=== PATIENT | female | born 1985 | race Caucasian/White ===

== ENCOUNTER 2018-01-27 10:04 | Emergency (ER) | payer MEDICAID, OTHER ==
[~2018-01-27] VITALS: Ht 165.1 cm; Wt 136.1 kg
--- OUTSIDE RECORDS SUMMARY | 2018-01-27 10:11 | XMS REPORT ---
Author RIN Martell [facility] eClinicalWorks Address Unknown Phone Unavailable Care Team Providers Care Net Developer Software Engineer C Name Role Phone RIN WHITTEN CP Unavailable Allergies, Adverse Reactions, Alerts Substance Reaction Event Type N.K.D.A. Info Not Available Non Drug Allergy Problems Problem Type Condition Code Onset Dates Condition Status Problem Unspecified viral infection, in conditions classified elsewhere and of unspecified site 079.99 Active Problem Cough 786.2 Active Problem Chest pain, unspecified 786.50 Active Problem Asthma, unspecified, unspecified status 493.90 Active Problem Dermatophytosis of nail 110.1 Active Problem Allergic rhinitis, unspecified allergic rhinitis type J30.9 Active Problem Acute bronchitis 466.0 Active Problem Intrinsic asthma, with (acute) exacerbation 493.12 Active Problem External hemorrhoids without mention of complication 455.3 Active Problem Morbid obesity 278.01 Active Assessment Allergic rhinitis, unspecified allergic rhinitis type J30.9 Active Problem Abdominal pain, unspecified site 789.00 Active Problem Cellulitis and abscess of unspecified site 682.9 Active Problem Obesity, unspecified 278.00 Active Problem Urinary tract infection, site not specified 599.0 Active Problem Other specified disease of hair and hair follicles 704.8 Active Problem Pruritus of genital organs 698.1 Active Problem Acute sinusitis, unspecified 461.9 Active Medications Medication Code System Code Instructions Start Date End Date Status Dosage Advair HFA [facility] [address]-99 115-21 mcg/actuation Oct 31, 2014 2 puffs by Inhalation route 2 times per day Albuterol Sulfate [facility] [address]-67 2.5 mg /3 mL (0.083 %) December 23, 2013 1 Each by Inhalation route every 4-6 hours for cough and wheeze for 7 days for wheezing or cough ProAir HFA [facility] [address]-95 90 mcg/actuation Oct 31, 2014 2 puffs by Inhalation route 4 times per day for 30 day(s) Claritin-D 24 Hour [facility] [address]-82 10-240 MG/24HR Orally Once a day Sep 09, 2015 1 tablet as needed Flonase [facility] [address]-07 50 MCG/DOSE Nasally Once a day Sep 09, 2015 1-2 spray in each nostril Xanax [facility] [address]-81 2 mg December 23, 2013 not defined Procedures Procedure Coding System Code Date Office Visit, Est Pt., Level 3 CPT-4 02557 Sep 09, 2015 Vital Signs Date/Time: Sep 09, 2015 Temperature 98.3 F Weight 310 lbs Height 65 in BMI 51.58 Index Blood Pressure Diastolic 80 mmHg Blood Pressure Systolic 118 mmHg Cardiac Monitoring Heart Rate 102 bpm Results No Known Results Summary Purpose eClinicalWorks Submission
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
--- OUTSIDE RECORDS SUMMARY | 2018-01-27 10:11 | XMS REPORT ---
Author Author HYUN OGLESBY [facility] Address Unknown Phone Unavailable Care Team Providers Care Roller Shop Utility Worker Name Role Phone HYUN OGLESBY Unavailable Unavailable PROBLEMS Type Condition ICD9-CM Code CPD39-MO Code Onset Dates Condition Status SNOMED Code Problem Allergic contact dermatitis, unspecified trigger L23.9 Active 731190578 Problem Scabies B86 Active 294688515 Problem Allergic rhinitis, unspecified allergic rhinitis type J30.9 Active 79130988 Problem Asthma exacerbation J45.901 Active 254496607 Problem Seasonal allergic rhinitis, unspecified allergic rhinitis trigger J30.2 Active 092685987 ALLERGIES No Information SOCIAL HISTORY Never Assessed PLAN OF CARE VITAL SIGNS MEDICATIONS No Known Medications RESULTS No Results PROCEDURES No Known procedures IMMUNIZATIONS No Known Immunizations MEDICAL (GENERAL) HISTORY [...]
--- OUTSIDE RECORDS SUMMARY | 2018-01-27 10:11 | XMS REPORT ---
Author Author EUGENIO BRUMFIELD [facility] Address [address] [place] [address] Care Team Providers Care Local Company Refrigerated Truck Driver Name Role Phone BRISSAEUGENIO Unavailable PROBLEMS Type Condition ICD9-CM Code ZZA75-IG Code Onset Dates Condition Status SNOMED Code Problem Allergic contact dermatitis, unspecified trigger L23.9 Active 346382642 Problem Scabies B86 Active 097508262 Problem Allergic rhinitis, unspecified allergic rhinitis type J30.9 Active 16987397 Problem Asthma exacerbation J45.901 Active 804580926 Problem Seasonal allergic rhinitis, unspecified allergic rhinitis trigger J30.2 Active 795112913 ALLERGIES No Information SOCIAL HISTORY Never Assessed [...]
--- OUTSIDE RECORDS SUMMARY | 2018-01-27 10:11 | XMS REPORT ---
Author JANY Bush [facility] eClinicalWorks Address Unknown Phone Unavailable Care Team Providers Care Marketing Intelligence Manager Name Role Phone JANY WATT CP Unavailable Allergies, Adverse Reactions, Alerts Substance [...] Active Problem Morbid obesity 278.01 Active Assessment Sinusitis J32.9 Active Problem Abdominal pain, unspecified site 789.00 Active Assessment Allergic rhinitis, unspecified allergic rhinitis type J30.9 Active Problem Cellulitis and abscess of unspecified site 682.9 Active Problem Obesity, unspecified 278.00 Active Problem Urinary tract infection, site not specified 599.0 Active Problem Other specified disease of hair and hair follicles 704.8 Active Problem Pruritus of genital organs 698.1 Active Problem Acute sinusitis, unspecified 461.9 Active Medications Medication Code System Code Instructions Start Date End Date Status Dosage Augmentin [facility] [address]-23 875-125 MG Orally every 12 hrs Nov 10, 2015 Nov 20, 2015 1 tablet Xanax [facility] [address]-99 2 mg December 23, 2013 not defined Ibuprofen [facility] [address]-39 600 MG Orally Three times a day prn headache Nov 10, 2015 Dec 10, 2015 1 tablet Flonase [facility] [address]-03 50 MCG/DOSE Nasally 2 times a day Sep 09, 2015 1 spray in each nostril Zyrtec Allergy [facility] [address]-59 10 MG Orally Once a day at HS Nov 10, 2015 1 tablet Procedures Procedure Coding System Code Date Office Visit, Est Pt., Level 3 CPT-4 15475 Nov 10, 2015 Vital Signs Date/Time: Nov 10, 2015 Temperature 97.3 F Weight 305.6 lbs Height 65 in BMI 50.85 Index Blood Pressure Diastolic 70 mmHg Blood Pressure Systolic 118 mmHg Cardiac Monitoring Heart Rate 98 bpm Results No Known Results Summary Purpose eClinicalWorks Submission
--- OUTSIDE RECORDS SUMMARY | 2018-01-27 10:11 | XMS REPORT ---
Author Author RAFAEL REID [facility] Address Unknown Care Team Providers Care Tonnage Compilation Clerk Name Role Phone RAFAEL REID Unavailable PROBLEMS Type Condition ICD9-CM Code DBO10-SO Code Onset Dates Condition Status SNOMED Code Problem Asthma exacerbation J45.901 Active 244500995 Problem Allergic rhinitis, unspecified allergic rhinitis type J30.9 Active 84908028 Problem Morbid (severe) obesity due to excess calories E66.01 Active 872689626 Problem Tobacco abuse Z72.0 Active 707848806 Problem Scabies B86 Active 287679293 Problem Seasonal allergic rhinitis, unspecified allergic rhinitis trigger J30.2 Active 215486232 Problem Body mass index (BMI) of 50-59.9 in adult Z68.43 Active 480521142 Problem Allergic contact dermatitis, unspecified trigger L23.9 Active 211928768 ALLERGIES Substance Reaction Event Type Date Status Tramadol HCl Unknown Drug Allergy Mar, Active ENCOUNTERS Encounter Location Date Diagnosis [facility] [address] [id number] [id number] Nov, 2018 Shortness of breath R06.02 ; Swelling, mass, or lump in chest R22.2 ; Asthma exacerbation J45.901 ; Tobacco abuse Z72.0 ; Body mass index (BMI) of 50- 59.9 in adult Z68.43 and Morbid (severe) obesity due to excess calories E66.01 [facility] [address] [id number] [place] [id number] Jul, [facility] [address] [facility] [id number] [id number] Mar, Dental caries K02.9 [facility] [address] [id number][place] [id number] Mar, Dental examination Z01.20 [facility] [address] [id number] [id number] February, [facility] examination Z01.20 [facility] [address] [id number][place] [id number] Jan, [facility] [address] [facility] [id number] [address] Dec, Right foot pain M79.671 and Right foot sprain, initial encounter S93.601A [facility] [id number] [id number] Nov, [facility] [address] [id number][place] [id number] Nov, [facility] [id number][place] [id number] Nov, [facility] [id number][place] [id number] Nov, [facility] [address] [id number][place] [id number] Nov, Asthma exacerbation J45.901 [facility] [address] [id number][place] [id number] Nov, [facility] [address] [id number], [place] [id number] Nov, Asthma exacerbation J45.901 and Allergic contact dermatitis, unspecified trigger L23.9 [facility] [address] [facility] [id number], [place] [address] Aug, Dental examination Z01.20 [facility] [address] [facility] [id number][place] [address] Aug, Dental examination Z01.20 [facility] [address] [id number][place] [id number] 06 Jul, 2016 Scabies B86 [facility] [address] [id number], [place] [id number] 14 Jun, 2016 [facility] [address] [facility] [id number], [place] [address] Jun, [address] [id number][place] [id number] Jun, Asthma exacerbation J45.901 and Seasonal allergic rhinitis, unspecified allergic rhinitis trigger J30.[address] [id number], [place] [id number] Dec, [address] [id number][place] [id number] Dec, Strep pharyngitis J02.[id number] [place] [id number] Nov, Encntr for basket machine operator exam (general) (routine) w/o abn findings Z01.[address] [id number], [place] [id number] Oct, Sinusitis J32.9 and Allergic rhinitis, unspecified allergic rhinitis type J30.[address] [id number], [place] [id number] Aug, Allergic rhinitis, unspecified allergic rhinitis type J30.[address] [id number], [place] [id number] Mar, Avulsion fracture of navicular bone of left foot 825.22 and Fall from other slipping, tripping, or stumbling E885.9 [facility] [address] [id number], [place] [address] Jan, [facility] [id number] [place] [address] Jan, [facility] [address] [place] [address] Dec, [facility] [address]00565100[place], [place] [address] Dec, [facility] [place] [facility] [address] [id number] [place] [address] Dec, 2014 [facility] [place] [facility] [address] [id number] [place] [address] Dec, 2014 [facility] [place] [facility] [address] [id number] [place] [address] Dec, 2014 [facility] [place] [facility] [address] [id number] [place] [address] Dec, 2014 [facility] [place] [facility] [address] [id number] [place] [address] Nov, 2014 [facility] [place] [facility] [address] [id number] [place] [address] Nov, 2014 [facility] [place] [facility] [address] [facility] [id number] [place] [address] Nov, 2014 [facility] [place] [facility] [address] [facility] [id number] [place] [address] Nov, 2014 [facility] [place] [facility] [address] [facility] [id number] [place] [address] Nov, [facility] [place] [facility] [address] [facility] [id number] [place] [address] Nov, [facility] [place] [facility] [address] [facility] [id number] [place] [address] Oct, [facility] [place] [facility] [address] [facility] [id number], [place] [address] Oct, [facility] [place] [facility] [address] [facility] [id number] [place] [address] Jul, [facility] [place] [facility] [address] [id number] [place] [address] Jul, [facility] [place] [facility] [address] [facility] [id number], [place] [address] Jun, [facility] [place] [facility] [address] [facility] [id number], [place] [address] Jun, [facility] [address]00565100[place], [place] [address] May, [facility] [address]00565100[place] [address] Apr, [facility] [address] [id number], [place] [address] Apr, [facility] [address] [facility] [id number], [place] [address] Mar, [facility] [address] [facility] [id number], [place] [address] Mar, [facility] [address]65100[place], [place] [address] Mar, [facility] [address]65100[place], [place] [address] Mar, [facility] [address]65100[place], [place] [address] Mar, [facility] [address]65100[place], [place] [address] Mar, [facility] [address]65100[place], [place] [address] February, [facility] [address] [id number], [place] [address] February, [facility] [address] [id number], [place] [address] Dec, [facility] [address] [id number], [place] [address] Dec, IMMUNIZATIONS No Known Immunizations SOCIAL HISTORY Never Assessed REASON FOR VISIT margaux PLAN OF CARE Activity Details Follow Up 1 Week Reason:TE VITAL SIGNS Height 65 in 2017-03-28 Blood pressure systolic 119 mmHg 2017-03-28 Blood pressure diastolic 84 mmHg 2017-03-28 MEDICATIONS Medication Instructions Dosage Frequency Start Date End Date Duration Status Crutches-Aluminum - as directed Dec, Active Topamax 200 MG Orally Twice a day 1 tablet 12h Active Ventolin HFA 108 (90 Base) MCG/ACT Inhalation every 4 hrs 2 puffs as needed 4h Nov, 07 days Active Ambien 5 MG Orally Once a day 1 tablet at bedtime 24h Active [place] 5-325 MG Orally every 6 hrs 1 tablet as needed 6h 4 days Active Albuterol Sulfate 2.5 mg /3 mL (0.083 %) Inhalation 4 times a day as needed 3 mls-do not use both inhaler and albuterol more than 6 times Max Dec, 07 days Active Prestige LX Active Advair Diskus 250-50 MCG/DOSE Inhalation Twice a day, rinse mouth after use 1 puff Jun, 0 days Active Amoxicillin 500 MG Orally every 8 hrs 1 tablet 8h 7 days Active Xanax 2 mg Dec, Active Amoxicillin 500 MG Orally every 8 hrs 1 capsule 8h 7 days Active [place] 5-325 MG Orally every 6 hrs 1 tablet as needed 6h 4 days Active RESULTS No Results PROCEDURES Procedure Date Ordered Result Body Site LTD ORAL EVALUATION - PROBLEM FOCUS March 28, 2017 INSTRUCTIONS MEDICATIONS ADMINISTERED No Known Medications MEDICAL (GENERAL) HISTORY Type Description Date Medical [...]
--- OUTSIDE RECORDS SUMMARY | 2018-01-27 10:11 | XMS REPORT ---
Author Author EUGENIO BRUMFIELD [facility] Address [address] [place] [address] Care Team Providers Care Automobile Technician Name Role Phone BRISSAEUGENIO Unavailable PROBLEMS Type Condition ICD9-CM Code ZPN35-GS Code Onset Dates Condition Status SNOMED Code Problem Allergic contact dermatitis, unspecified trigger L23.9 Active 890372889 Problem Scabies B86 Active 266833884 Problem Allergic rhinitis, unspecified allergic rhinitis type J30.9 Active 61895751 Problem Asthma exacerbation J45.901 Active 117065183 Problem Seasonal allergic rhinitis, unspecified allergic rhinitis trigger J30.2 Active 417805684 ALLERGIES No Information SOCIAL HISTORY Never Assessed [...]
--- OUTSIDE RECORDS SUMMARY | 2018-01-27 10:11 | XMS REPORT ---
Author Author [facility]ES [facility] Address [address] [place] [address] Care Team Providers Care Extruder Operator Name Role Phone OMAR NEVES Unavailable PROBLEMS Type Condition ICD9-CM Code DPE05-VS Code Onset Dates Condition Status SNOMED Code Problem Allergic contact dermatitis, unspecified trigger L23.9 Active 840995869 Problem Scabies B86 Active 694784318 Problem Allergic rhinitis, unspecified allergic rhinitis type J30.9 Active 43580988 Problem Asthma exacerbation J45.901 Active 833549905 Problem Seasonal allergic rhinitis, unspecified allergic rhinitis trigger J30.2 Active 813818529 ALLERGIES Substance Reaction Event Type Date Status Tramadol HCl Unknown Drug Allergy Dec, Active SOCIAL HISTORY Never Assessed PLAN OF CARE Activity Details Follow Up prn Reason: VITAL SIGNS Height 65 in 2016-12-20 Weight 320.8 lbs 2016-12-20 Temperature 98.0 degrees Fahrenheit 2016-12-20 Heart Rate 92 bpm 2016-12-20 Respiratory Rate 22 2016-12-20 BMI 53.38 kg/m2 2016-12-20 Blood pressure systolic 126 mmHg 2016-12-20 Blood pressure diastolic 92 mmHg 2016-12-20 MEDICATIONS Medication Instructions Dosage Frequency Start Date End Date Duration Status Albuterol Sulfate 2.5 mg /3 mL (0.083 %) Inhalation 4 times a day as needed 3 mls-do not use both inhaler and albuterol more than 6 times Max Dec, 07 days Active Xanax 2 mg Dec, Active Crutches-Aluminum - as directed Dec, Active Ventolin HFA 108 (90 Base) MCG/ACT Inhalation every 4 hrs 2 puffs as needed 4h Nov, 07 days Active Prestige LX Active Ambien 5 MG Orally Once a day 1 tablet at bedtime 24h Active Topamax 200 MG Orally Twice a day 1 tablet 12h Active Advair Diskus 250-50 MCG/DOSE Inhalation Twice a day, rinse mouth after use 1 puff 13 Jun, 2016 0 days Active RESULTS Name Result Date Reference Range Xray : Foot, Right 3 views (IN HOUSE) 2016-12-20 PROCEDURES Procedure Date Ordered Result Body Site X-RAY EXAM OF FOOT December 20, 2016 IMMUNIZATIONS No Known Immunizations MEDICAL (GENERAL) [...]
--- OUTSIDE RECORDS SUMMARY | 2018-01-27 10:11 | XMS REPORT ---
Author Author JACLYN Maldonado Organization [facility] Address Unknown Care Team Providers Care Social Work Coordinator Name Role Phone JACLYN Maldonado Unavailable PROBLEMS Type Condition ICD9-CM Code KIV46-AJ Code Onset Dates Condition Status SNOMED Code Problem Allergic contact dermatitis, unspecified trigger L23.9 Active 587417563 Problem Scabies B86 Active 841949253 Problem Allergic rhinitis, unspecified allergic rhinitis type J30.9 Active 50522546 Problem Asthma exacerbation J45.901 Active 405770080 Problem Seasonal allergic rhinitis, unspecified allergic rhinitis trigger J30.2 Active 806817982 ALLERGIES Substance Reaction Event Type Date Status N.K.D.A. Unknown Non Drug Allergy Aug, Unknown SOCIAL HISTORY No smoking Hx information available PLAN OF CARE Activity Details Follow Up prn Reason:fillings VITAL SIGNS Height 65 in 2016-08-27 Blood pressure systolic 105 mmHg 2016-08-27 Blood pressure diastolic 70 mmHg 2016-08-27 MEDICATIONS Medication Instructions Dosage Frequency Start Date End Date Duration Status Topamax 200 MG Orally Twice a day 1 tablet 12h Active ProAir HFA 90 mcg/actuation Inhalation 4 times a day then as needed 2 puffs Oct, 07 days Active Albuterol Sulfate 2.5 mg /3 mL (0.083 %) Inhalation 4 times a day as needed 3 mls-do not use both inhaler and albuterol more than 6 times Max Dec, 07 days Active Ambien 5 MG Orally Once a day 1 tablet at bedtime 24h Active Advair Diskus 100-50 MCG/DOSE Inhalation Twice a day, rinse mouth after use 1 puff Jun, Active Prestige LX Active Xanax 2 mg Dec, Active Ibuprofen 800 MG Orally Three times a day 1 tablet as needed with food 8h Jun, Active RESULTS No Results PROCEDURES Procedure Date Ordered Related Diagnosis Body Site LTD ORAL EVALUATION - PROBLEM FOCUS Aug 27, 2016 COMP ORAL EVALUATION - NEW/EST PT Aug 27, 2016 INTRAORL-PERIAPICAL 1 FILM 53086 Aug 27, 2016 RESIN COMPOS - 3 SURFACES POSTERIOR Aug 27, 2016 PANORAMIC FILM SEE ALSO CODE 06751 Aug 27, 2016 IMMUNIZATIONS No Known Immunizations
--- OUTSIDE RECORDS SUMMARY | 2018-01-27 10:12 | XMS REPORT ---
Author Author ANSELMOEUGENIO DISLA [facility] Address [address] [place] [address] Care Team Providers Care Enrichment Teacher Name Role Phone EUGENIO BRUMFIELD Unavailable PROBLEMS Type Condition ICD9-CM Code ZIF18-KO Code Onset Dates Condition Status SNOMED Code Problem Asthma exacerbation J45.901 Active 079465003 Problem Seasonal allergic rhinitis, unspecified allergic rhinitis trigger J30.2 Active 197887078 Problem Allergic rhinitis, unspecified allergic rhinitis type J30.9 Active 20355999 Assessment Asthma exacerbation J45.901 Jun, Active 124217885 ALLERGIES Substance Reaction Event Type Date Status N.K.D.A. Unknown Non Drug Allergy Jun, Unknown SOCIAL HISTORY No smoking Hx information available PLAN OF CARE VITAL SIGNS Height 65 in 2016-07-02 Weight 316 lbs 2016-07-02 Heart Rate 98 bpm 2016-07-02 Respiratory Rate 20 2016-07-02 Oximetry 96 % 2016-07-02 BMI 52.58 kg/m2 2016-07-02 Blood pressure systolic 118 mmHg 2016-07-02 Blood pressure diastolic 76 mmHg 2016-07-02 MEDICATIONS Medication Instructions Dosage Frequency Start Date End Date Duration Status Albuterol Sulfate 2.5 mg /3 mL (0.083 %) Inhalation 4 times a day as needed 3 mls-do not use both inhaler and albuterol more than 6 times Max Dec, 07 days Active Topamax 200 MG Orally Twice a day 1 tablet 12h Active Xanax 2 mg Dec, Active PredniSONE 20 mg Orally Once a day 2 tablet 24h Jun, Jun, 05 days Active Zyrtec Allergy 10 mg Orally Once a day at HS 1 tablet Oct, Active Advair HFA 115-21 mcg/actuation Inhalation Twice a day 2 puffs-rinse mouth after use 12h Oct, Active Prestige LX Active Ibuprofen 800 MG Orally Three times a day 1 tablet as needed with food 8h Jun, Active Ambien 5 MG Orally Once a day 1 tablet at bedtime 24h Active ProAir HFA 90 mcg/actuation Inhalation 4 times a day then as needed 2 puffs Oct, 07 days Active RESULTS No Results PROCEDURES Procedure Date Ordered Related Diagnosis Body Site MEASURE BLOOD OXYGEN LEVEL Jul 02, 2016 Office Visit, Est Pt., Level 3 Jul 02, 2016 IMMUNIZATIONS No Known Immunizations
--- OUTSIDE RECORDS SUMMARY | 2018-01-27 10:12 | XMS REPORT ---
Author Author EUGENIO BRUMFIELD [facility] Address [address] [place] [address] Care Team Providers Care Radiotelegraph Operator Name Role Phone EUGENIO BRUMFIELD Unavailable PROBLEMS Type Condition ICD9-CM Code [id number] Code Onset Dates Condition Status SNOMED Code Problem Allergic contact dermatitis, unspecified trigger L23.9 Active 662540955 Problem Scabies B86 Active 373731878 Problem Allergic rhinitis, unspecified allergic rhinitis type J30.9 Active 38165447 Problem Asthma exacerbation J45.901 Active 566855256 Problem Seasonal allergic rhinitis, unspecified allergic rhinitis trigger J30.2 Active 160513901 ALLERGIES No Information SOCIAL HISTORY Never Assessed PLAN OF CARE VITAL SIGNS MEDICATIONS Medication Instructions Dosage Frequency Start Date End Date Duration Status Magic Mouthwash 30 ML each of 2% Viscous Lidocaine/Maalox/Benadryl Oral Swish and Spit 4 times daily 5 ML Nov, 7 days Active RESULTS No Results PROCEDURES No Known procedures [...]
--- OUTSIDE RECORDS SUMMARY | 2018-01-27 10:12 | XMS REPORT ---
Author Author EUGENIO BRUMFIELD [facility] Address [address] [place] [address] Care Team Providers Care Superintendent Stevedoring Name Role Phone EUGENIO BRUMFIELD Unavailable PROBLEMS Type Condition ICD9-CM Code EHI04-NU Code Onset Dates Condition Status SNOMED Code Problem Allergic contact dermatitis, unspecified trigger L23.9 Active 148589650 Problem Scabies B86 Active 130702549 Problem Allergic rhinitis, unspecified allergic rhinitis type J30.9 Active 51784864 Problem Asthma exacerbation J45.901 Active 591283620 Problem Seasonal allergic rhinitis, unspecified allergic rhinitis trigger J30.2 Active 034865790 ALLERGIES No Information SOCIAL HISTORY Never Assessed PLAN OF CARE VITAL SIGNS MEDICATIONS Medication Instructions Dosage Frequency Start Date End Date Duration Status Tylenol/Codeine #3 300-30 MG Orally 3 times a day as needed for pain 1 tablet Nov, Active RESULTS No Results PROCEDURES No Known [...]
--- OUTSIDE RECORDS SUMMARY | 2018-01-27 10:12 | XMS REPORT ---
Author Author BRISSA EUGENIO [facility] Address [address] [place] [address] Care Team Providers Care Mechanical Service Specialist Name Role Phone EUGENIO BRUMFIELD Unavailable PROBLEMS Type Condition ICD9-CM Code XUN54-IO Code Onset Dates Condition Status SNOMED Code Problem Allergic contact dermatitis, unspecified trigger L23.9 Active 804824458 Problem Scabies B86 Active 693998322 Problem Allergic rhinitis, unspecified allergic rhinitis type J30.9 Active 37868763 Problem Asthma exacerbation J45.901 Active 846432514 Problem Seasonal allergic rhinitis, unspecified allergic rhinitis trigger J30.2 Active 075288449 ALLERGIES No Known Allergies SOCIAL HISTORY Never Assessed PLAN OF CARE Activity Details Follow Up 3 Weeks Reason:punch biopsy VITAL SIGNS Height 65 in 2016-11-26 Weight 309 lbs 2016-11-26 Temperature 99.0 degrees Fahrenheit 2016-11-26 Heart Rate 90 bpm 2016-11-26 Respiratory Rate 16 2016-11-26 Oximetry 96 % 2016-11-26 BMI 51.41 kg/m2 2016-11-26 Blood pressure systolic 110 mmHg 2016-11-26 Blood pressure diastolic 76 mmHg 2016-11-26 MEDICATIONS Medication Instructions Dosage Frequency Start Date End Date Duration Status Topamax 200 MG Orally Twice a day 1 tablet 12h Active PredniSONE 20 mg Orally Once a day start 11/27/16-3 tabs dly x 3 d, 2 tabs dly x 3 d, 1 tabs dly x 3 d, 1/2 tab dly x 3 d 24h Nov, Nov, 12 days Active Ibuprofen 800 MG Orally Three times a day with food 1 tablet as needed with food Jun, Nov, 0 days Active Ventolin HFA 108 (90 Base) MCG/ACT Inhalation every 4 hrs 2 puffs as needed 4h Nov, 07 days Active Advair Diskus 250-50 MCG/DOSE Inhalation Twice a day, rinse mouth after use 1 puff 13 Jun, 2016 0 days Active HydrOXYzine HCl 25 MG Orally every 8 hrs for itching 1 tablet as needed Nov, 0 days Active Prestige LX Active Ambien 5 MG Orally Once a day 1 tablet at bedtime 24h Active Xanax 2 mg Dec, Active Albuterol Sulfate 2.5 mg /3 mL (0.083 %) Inhalation 4 times a day as needed 3 mls-do not use both inhaler and albuterol more than 6 times Max Dec, 07 days Active Amoxicillin 875 MG Orally every 12 hrs 1 tablet 12h Nov, Nov, 14 days Active RESULTS No Results PROCEDURES Procedure Date Ordered Result Body Site MEASURE BLOOD OXYGEN LEVEL Nov 26, 2016 IMMUNIZATIONS No Known Immunizations MEDICAL (GENERAL) [...]
--- OUTSIDE RECORDS SUMMARY | 2018-01-27 10:12 | XMS REPORT ---
Author Author RAFAEL REID [facility] Address Unknown Care Team Providers Care Pipelaying Fitter Name Role Phone RAFAEL REID Unavailable PROBLEMS Type Condition ICD9-CM Code OAP36-HJ Code Onset Dates Condition Status SNOMED Code Problem Asthma exacerbation J45.901 Active 776896055 Problem Allergic rhinitis, unspecified allergic rhinitis type J30.9 Active 84138743 Problem Morbid (severe) obesity due to excess calories E66.01 Active 903367359 Problem Tobacco abuse Z72.0 Active 082684565 Problem Scabies B86 Active 169095358 Problem Seasonal allergic rhinitis, unspecified allergic rhinitis trigger J30.2 Active 039845949 Problem Body mass index (BMI) of 50-59.9 in adult Z68.43 Active 949554234 Problem Allergic contact dermatitis, unspecified trigger L23.9 Active 057281549 ALLERGIES Substance Reaction Event Type Date Status Tramadol HCl Unknown Drug Allergy February, Active ENCOUNTERS Encounter Location Date Diagnosis [facility] [address] [id number] [id number] 15 Nov, 2017 Shortness of breath R06.02 ; Swelling, mass, or lump in chest R22.2 ; Asthma exacerbation J45.901 ; Tobacco abuse Z72.0 ; Body mass index (BMI) of 50- 59.9 in adult Z68.43 and Morbid (severe) obesity due to excess calories E66.01 [facility] [address] [id number] [place] [id number] Jul, [facility] [address] [facility] [id number][place] [id number] Mar, Dental caries K02.9 [facility] [address] [id number][place] [id number] Mar, Dental examination Z01.20 [facility] [address] [facility] [id number][place] [id number] February, [facility] Z01.20 [facility] [address] [id number][place] [id number] Jan, [facility] [address] [facility] [id number][place] [address] Dec, Right foot pain M79.671 and Right foot sprain, initial encounter S93.601A [facility] [address] [id number][place] [id number] Nov, [facility] [address] [id number], [place] [id number] Nov, [facility] [address] [id number], [place] [id number] Nov, [facility] [address] [id number], [place] [id number] Nov, [facility] [address] [id number][place] [id number] Nov, Asthma exacerbation J45.901 [facility] [address] [id number], [place] [id number] Nov, [facility] [address] [id number], [place] [id number] Nov, Asthma exacerbation J45.901 and Allergic contact dermatitis, unspecified trigger L23.9 [facility] [address] [facility] [id number], [place] [address] Aug, Dental examination Z01.20 [facility] [address] [facility] [id number], [place] [address] Aug, Dental examination Z01.20 [facility] [address] [id number], [place] [id number] 06 Jul, 2016 Scabies B86 [facility] [address] [id number], [place] [id number] 14 Jun, 2016 [facility] [address] [facility] [id number], [place] [address] Jun, [address] [id number], [place] [id number] Jun, Asthma exacerbation J45.901 and Seasonal allergic rhinitis, unspecified allergic rhinitis trigger J30.[address] [id number], [place] [id number] Dec, [address] [id number], [place] [id number] Dec, Strep pharyngitis J02.[id number] [place] [id number] Nov, Encntr for scrap hoist operator exam (general) (routine) w/o abn findings Z01.[address] [id number], [place] [id number] Oct, Sinusitis J32.9 and Allergic rhinitis, unspecified allergic rhinitis type J30.[address] [id number], [place] [id number] Aug, Allergic rhinitis, unspecified allergic rhinitis type J30.[address] [id number], [place] [id number] Mar, Avulsion fracture of navicular bone of left foot 825.22 and Fall from other slipping, tripping, or stumbling E885.9 [facility] [address] [id number], [place] [address] Jan, [facility] [id number] [place] [address] Jan, [facility] [id number] [place] [address] Dec, [facility] [address]00565100[place], [place] [address] Dec, [facility] [place] [facility] [address] [id number] [place] [address] Dec, 2014 [facility] [place] [facility] [address] [id number] [place] [address] Dec, 2014 [facility] [place] [facility] [address] [id number] [place] [address] Dec, 2014 [facility] [place] [facility] [address] [id number] [place] [address] Dec, 2014 [facility] [place] [facility] [address] [id number] [place] [address] Nov, 2014 [facility] [place] [facility] [address] [id number] [place] [address] Nov, 2014 [facility] [place] [facility] [address] [facility] [id number] [place] [address] Nov, 2014 [facility] [place] [facility] [address] [facility] [id number] [place] [address] Nov, 2014 [facility] [place] [facility] [address] [facility] [id number] [place] [address] Nov, [facility] [place] [facility] [address] [facility] [id number] [place] [address] Nov, [facility] [place] [facility] [address] [facility] [id number] [place] [address] Oct, [facility] [place] [facility] [address] [facility] [id number], [place] [address] Oct, [facility] [place] [facility] [address] [facility] [id number] [place] [address] Jul, [facility] [place] [facility] [address] [id number] [place] [address] Jul, [facility] [place] [facility] [address] [facility] [id number], [place] [address] Jun, [facility] [place] [facility] [address] [facility] [id number], [place] [address] Jun, [facility] [address]00565100[place], [place] [address] May, [facility] [address]00565100[place] [address] Apr, [facility] [address] [id number], [place] [address] Apr, [facility] [address] [facility] [id number], [place] [address] Mar, [facility] [address] [id number], [place] [address] Mar, [facility] [address]00565100[place], [place] [address] Mar, [facility] [address]00565100[place], [place] [address] Mar, [facility] [address]00565100[place], [place] [address] Mar, [facility] [address]65100[place], [place] [address] Mar, [facility] [address]00565100[place], [place] [address] February, [facility] [address] [id number], [place] [address] February, [facility] [address] [id number], [place] [address] Dec, [facility] [address] [id number], [place] [address] Dec, IMMUNIZATIONS No Known Immunizations SOCIAL HISTORY Never Assessed REASON FOR VISIT ROCIO PLAN OF CARE Activity Details Follow Up 1 Week Reason:TE 30 VITAL SIGNS Height 65 in 2017-03-05 Blood pressure systolic 125 mmHg 2017-03-05 Blood pressure diastolic 85 mmHg 2017-03-05 MEDICATIONS Medication Instructions Dosage Frequency Start Date End Date Duration Status Topamax 200 MG Orally Twice a day 1 tablet 12h Active Advair Diskus 250-50 MCG/DOSE Inhalation Twice a day, rinse mouth after use 1 puff Jun, 0 days Active Ambien 5 MG Orally Once a day 1 tablet at bedtime 24h Active [place] 5-325 MG Orally every 6 hrs 1 tablet as needed 6h 4 days Active Prestige LX Active Albuterol Sulfate 2.5 mg /3 mL (0.083 %) Inhalation 4 times a day as needed 3 mls-do not use both inhaler and albuterol more than 6 times Max Dec, 07 days Active Ventolin HFA 108 (90 Base) MCG/ACT Inhalation every 4 hrs 2 puffs as needed 4h Nov, 07 days Active Xanax 2 mg Dec, Active Crutches-Aluminum - as directed Dec, Active Amoxicillin 500 MG Orally every 8 hrs 1 tablet 8h 7 days Active RESULTS No Results PROCEDURES Procedure Date Ordered Result Body Site LTD ORAL EVALUATION - PROBLEM FOCUS March 05, 2017 INTRAORL-PERIAPICAL 1 FILM 03284 March 05, 2017 INSTRUCTIONS MEDICATIONS ADMINISTERED No Known Medications [...]
--- OUTSIDE RECORDS SUMMARY | 2018-01-27 10:12 | XMS REPORT | Continuity of Care Document ---
Author Author Pending Sale To [facility] Address Unknown Phone Unavailable Allergies There is no data. Medications There is no data. Problems Date Dx Coded Attending Type Code Diagnosis Diagnosed By 12/23/2013 EUGENIO BRUMFIELD APRN 466.0 BRONCHITIS, ACUTE 12/23/2013 EUGENIO BRUMFIELD APRN 466.0 BRONCHITIS, ACUTE 12/23/2013 HENNING DO, ROGER K 466.0 BRONCHITIS, ACUTE 12/23/2013 HENNING DO, ROGER K 466.0 BRONCHITIS, ACUTE 12/23/2013 HENNING DO, ROGER K 466.0 BRONCHITIS, ACUTE 12/23/2013 HENNING DO, ROGER K 466.0 BRONCHITIS, ACUTE 12/23/2013 HENNING DO, ROGER K 466.0 BRONCHITIS, ACUTE 03/09/2014 EUGENIO BRUMFIELD APRN L 278.00 OBESITY UNSPECIFIED 03/09/2014 EUGENIO BRUMFIELD APRN L 682.9 CELLULITIS AND ABSCESS OF UNSPECIFIED SITES 03/09/2014 EUGENIO BRUMFIELD APRN L 704.8 OTHER SPECIFIED DISEASES OF HAIR AND HAIR FOLLICLES 03/09/2014 HENNING DO, ROGER K 278.00 OBESITY UNSPECIFIED 03/09/2014 HENNIGN DO, ROGER K 682.9 CELLULITIS AND ABSCESS OF UNSPECIFIED SITES 03/09/2014 HENNING DO, ROGER K 704.8 OTHER SPECIFIED DISEASES OF HAIR AND HAIR FOLLICLES 03/09/2014 HENNING DO, ROGER K 278.00 OBESITY UNSPECIFIED 03/09/2014 HENNING DO, ROGER K 682.9 CELLULITIS AND ABSCESS OF UNSPECIFIED SITES 03/09/2014 HENNING DO, ROGER K 704.8 OTHER SPECIFIED DISEASES OF HAIR AND HAIR FOLLICLES 03/09/2014 HENNING DO, ROGER K 278.00 OBESITY UNSPECIFIED 03/09/2014 HENNING DO, ROGER K 682.9 CELLULITIS AND ABSCESS OF UNSPECIFIED SITES 03/09/2014 HENNING DO, ROGER K 704.8 OTHER SPECIFIED DISEASES OF HAIR AND HAIR FOLLICLES 03/09/2014 HENNING DO, ROGER K 278.00 OBESITY UNSPECIFIED 03/09/2014 HENNING DO, ROGER K 682.9 CELLULITIS AND ABSCESS OF UNSPECIFIED SITES 03/09/2014 HENNING DO, ROGER K 704.8 OTHER SPECIFIED DISEASES OF HAIR AND HAIR FOLLICLES 03/09/2014 HENNING DO, ROGER K 278.00 OBESITY UNSPECIFIED 03/09/2014 HENNING DO, ROGER K 682.9 CELLULITIS AND ABSCESS OF UNSPECIFIED SITES 03/09/2014 HENNING DO, ROGER K 704.8 OTHER SPECIFIED DISEASES OF HAIR AND HAIR FOLLICLES 05/18/2014 HENNING DO, ROGER K 599.0 URINARY TRACT INFECTION SITE NOT SPECIFIED 05/18/2014 HENNING DO, ROGER K 698.1 PRURITUS OF GENITAL ORGANS 05/18/2014 HENNING DO, ROGER K 789.00 ABDOMINAL PAIN UNSPECIFIED SITE 05/18/2014 HENNING DO, ROGER K 599.0 URINARY TRACT INFECTION SITE NOT SPECIFIED 05/18/2014 HENNING DO, ROGER K 698.1 PRURITUS OF GENITAL ORGANS 05/18/2014 HENNING DO, ROGER K 789.00 ABDOMINAL PAIN UNSPECIFIED SITE 05/18/2014 HENNING DO, ROGER K 599.0 URINARY TRACT INFECTION SITE NOT SPECIFIED 05/18/2014 HENNING DO, ROGER K 698.1 PRURITUS OF GENITAL ORGANS 05/18/2014 HENNING DO, ROGER K 789.00 ABDOMINAL PAIN UNSPECIFIED SITE 05/18/2014 HENNING DO, ROGER K 599.0 URINARY TRACT INFECTION SITE NOT SPECIFIED 05/18/2014 HENNING DO, ROGER K 698.1 PRURITUS OF GENITAL ORGANS 05/18/2014 HENNING DO, ROGER K 789.00 ABDOMINAL PAIN UNSPECIFIED SITE 05/18/2014 HENNING DO, ROGER K 599.0 URINARY TRACT INFECTION SITE NOT SPECIFIED 05/18/2014 HENNING DO, ROGER K 698.1 PRURITUS OF GENITAL ORGANS 05/18/2014 HENNING DO, ROGER K 789.00 ABDOMINAL PAIN UNSPECIFIED SITE 07/09/2014 HENNING DO, ROGER K 461.9 SINUSITIS ACUTE 07/09/2014 HENNING DO, ROGER K 461.9 SINUSITIS ACUTE 07/09/2014 HENNING DO, ROGER K 461.9 SINUSITIS ACUTE 07/09/2014 HENNING DO, ROGER K 461.9 SINUSITIS ACUTE 10/31/2014 HENNING ROGER ENAMORADO K 493.12 INTRINSIC ASTHMA WITH (ACUTE) EXACERBATION 10/31/2014 HENNING YARIEL ENAMORADOA K 786.2 COUGH 10/31/2014 HENNING YARIEL ENAMORADOA K 493.12 INTRINSIC ASTHMA WITH (ACUTE) EXACERBATION 10/31/2014 HENNING YARIEL ENAMORADOA K 786.2 COUGH 10/31/2014 HENNING YARIEL ENAMORADOA K 493.12 INTRINSIC ASTHMA WITH (ACUTE) EXACERBATION 10/31/2014 HENNING ROGER ENAMORADO K 786.2 COUGH 11/22/2014 YARIEL HENNING DOA K 110.1 ONYCHOMYCOSIS 11/22/2014 YARIEL HENNING DOA K 278.01 OBESITY, MORBID (BMI >40) 11/22/2014 HENNING YARIEL ENAMORADOA K 455.3 EXTERNAL HEMORRHOIDS WITHOUT COMPLICATION 11/22/2014 YARIEL HENNING DOA K 493.90 ASTHMA UNSPECIFIED 11/22/2014 YARIEL HENNING DOA K 110.1 ONYCHOMYCOSIS 11/22/2014 YARIEL HENNING DOA K 278.01 OBESITY, MORBID (BMI >40) 11/22/2014 ROGER HENNING DO K 455.3 EXTERNAL HEMORRHOIDS WITHOUT COMPLICATION 11/22/2014 ROGER HENNING DO K 493.90 ASTHMA UNSPECIFIED 01/04/2015 YARIEL HENNING DOA K 079.99 UNSPECIFIED VIRAL INFECTION 01/04/2015 ROGER HENNING DO K 786.50 UNSPECIFIED CHEST PAIN Procedures Code Description [place] [address] NEBULIZER TREATMENT 12/23/2013 J7613 ALBUTEROL UNIT DOSE FORM INHALED 12/23/2013 67263 THERAPUTIC INJ SQ/IM 12/23/2013 J2930 SOLUMEDROL INJ 12/23/2013 62993 XRAY CHEST 2 VIEW 12/23/2013 47551 OXIMETRY 12/23/2013 23133 ROUTINE VENIPUNCTURE 03/30/2014 19448 CMP 03/30/2014 84214 LIPID PANEL 03/30/2014 69541 A1C (RML) 03/30/2014 53889 TSH 03/30/2014 24606 CULTURE URINE 05/18/2014 60341 UA LONG DIP 05/18/2014 19557 THERAPUTIC INJ SQ/IM 10/31/2014 J2930 SOLUMEDROL INJ 10/31/2014 Results There is no data. Encounters ACCT No. Visit Date/Time Discharge Status Pt. Type Provider Facility Loc./Unit Complaint [id number] 01/04/2015 10:26:00 01/04/2015 23:59:59 CLS Outpatient JUVENCIO ENAMORADOROGER [id number] 11/22/2014 09:46:00 11/22/2014 23:59:59 CLS Outpatient HENNING DOROGER [id number] 10/31/2014 14:31:00 10/31/2014 23:59:59 CLS Outpatient ROGER HENNING DO [id number] 07/09/2014 10:18:00 07/09/2014 23:59:59 CLS Outpatient HENNING DOROGER [id number] 05/18/2014 13:39:00 05/18/2014 23:59:59 CLS Outpatient ROGER HENNING DO [id number] 03/30/2014 07:26:00 03/30/2014 23:59:59 CLS Outpatient EUGENIO BRUMFIELD APRN [id number] 12/23/2013 11:45:00 12/23/2013 23:59:59 CLS Outpatient EUGENIO BRUMFIELD APRN
--- OUTSIDE RECORDS SUMMARY | 2018-01-27 10:12 | XMS REPORT ---
Author EUGENIO Brady [facility] e[employer] Address Unknown Phone Unavailable Care Team Providers Care Director Of Agronomy Name Role Phone EUGENIO BRUMFIELD CP Unavailable Allergies, Adverse Reactions, Alerts Substance Reaction Event Type N.K.D.A. Info Not Available Non Drug Allergy Problems Problem Type Condition Code Onset Dates Condition Status Problem Asthma exacerbation J45.901 Active Problem Seasonal allergic rhinitis, unspecified allergic rhinitis trigger J30.2 Active Problem Scabies B86 Active Problem Allergic rhinitis, unspecified allergic rhinitis type J30.9 Active Assessment Scabies B86 Active Medications Medication Code System Code Instructions Start Date End Date Status Dosage Permethrin [facility] [address]-98 5 % Externally Once a day Jul 25, 2016 1 application as directed to affected area Triamcinolone Acetonide [facility] [address]-22 0.1 % Externally Twice a day Jul 25, 2016 1 application to affected area Ambien [facility] [address]-35 5 MG Orally Once a day 1 tablet at bedtime Albuterol Sulfate [facility] [address]-41 2.5 mg /3 mL (0.083 %) Inhalation 4 times a day as needed December 23, 2013 3 mls-do not use both inhaler and albuterol more than 6 times Max Flonase [facility] [address]-55 50 MCG/DOSE Nasally 2 times a day Sep 09, 2015 1 spray in each nostril Xanax [facility] [address]-27 2 mg December 23, 2013 not defined Zyrtec Allergy [facility] [address]-32 10 mg Orally Once a day at Nov 10, 2015 1 tablet Ibuprofen [facility] [address]-07 800 MG Orally Three times a day Jul 02, 2016 1 tablet as needed with food ProAir HFA [facility] [address]-14 90 mcg/actuation Inhalation 4 times a day then as needed Oct 31, 2014 2 puffs Advair Diskus [facility] [address]-78 100-50 MCG/DOSE Inhalation Twice a day, rinse mouth after use Jul 02, 2016 1 puff Prestige LX NDC 0 not defined Procedures Procedure Coding System Code Date Office Visit, Est Pt., Level 3 CPT-4 78091 Jul 25, 2016 Vital Signs Date/Time: Jul 25, 2016 Cardiac Monitoring Heart Rate 90 bpm Weight 316 lbs Height 65 in BMI 52.58 Index Blood Pressure Diastolic 74 mmHg Blood Pressure Systolic 118 mmHg Results No Known Results Summary Purpose [employer]ClinicalWorks Submission
--- OUTSIDE RECORDS SUMMARY | 2018-01-27 10:12 | XMS REPORT ---
Author ROLO Cook [facility] eClinicalWorks Address Unknown Phone Unavailable Care Team Providers Care Tutor Coordinator Name Role Phone ROLO TABARES CP Unavailable Allergies, Adverse Reactions, Alerts Substance Reaction Event Type N.K.D.A. Info Not Available Non Drug Allergy Problems Problem Type Condition Code Onset Dates Condition Status Problem Asthma exacerbation J45.901 Active Problem Seasonal allergic rhinitis, unspecified allergic rhinitis trigger J30.2 Active Problem Scabies B86 Active Problem Allergic rhinitis, unspecified allergic rhinitis type J30.9 Active Assessment Dental examination Z01.20 Active Medications Medication Code System Code Instructions Start Date End Date Status Dosage Advair Diskus [facility] [address]-39 100-50 MCG/DOSE Inhalation Twice a day, rinse mouth after use Jul 02, 2016 1 puff ProAir HFA [facility] [address]-36 90 mcg/actuation Inhalation 4 times a day then as needed Oct 31, [address] [facility] [address]-71 2 mg December 23, 2013 not defined Ambien [facility] [address]-32 5 MG Orally Once a day 1 tablet at bedtime Ibuprofen [facility] [address]-94 800 MG Orally Three times a day Jul 02, 2016 1 tablet as needed with food Topamax [facility] [address]-28 200 MG Orally Twice a day 1 tablet Prestige LX [facility] 0 not defined Albuterol Sulfate [facility] [address]-21 2.5 mg /3 mL (0.083 %) Inhalation 4 times a day as needed December 23, 2013 3 mls-do not use both inhaler and albuterol more than 6 times Max Procedures Procedure Coding System Code Date INTRAORL-PERIAPICAL 1 FILM 83371 CPT-4 D0220 Aug 27, 2016 INTRAORL-PERIAPICAL 1 FILM 47870 CPT-4 D0220 Aug 27, 2016 COMP ORAL EVALUATION - NEW/EST PT CPT-4 D0150 Aug 27, 2016 TOPICAL FLUORIDE VARNISH CPT-4 D1206 Aug 27, 2016 BITEWINGS - FOUR FILMS CPT-4 D0274 Aug 27, 2016 INTRAORL-PERIAPICAL EA ADD FILM CPT-4 D0230 Aug 27, 2016 PRDONTAL SCAL and ROOT PLAN 1-3 TEETH CPT-4 D4342 Aug 27, 2016 PROPHYLAXIS - ADULT CPT-4 D1110 Aug 27, 2016 Vital Signs Date/Time: Aug 27, 2016 Blood Pressure Diastolic 70 mmHg Blood Pressure Systolic 105 mmHg Height 65 in Results No Known Results Summary Purpose eClinicalWorks Submission
[2018-01-27] MEDS ORDERED: IBUP-1780 (10:27)
[2018-01-27] MEDS ORDERED: SULF-222 (10:27)
[2018-01-27] MEDS ORDERED: AMBIE (10:27)
[2018-01-27] MEDS ORDERED: ZOLP10TA5 (10:30)
--- NOTE | 2018-01-27 10:54 | ED Integumentary General ---
General Chief Complaint: Skin/Wound Problems Stated Complaint: SKIN WOUND ISSUE ON CHEST Nursing Triage Note: TO ROOM FROM [facility] IN [place] HAS HAD RED AREA ON R CHEST WALL FOR 1 MONTH HAS HAD SONO OF AREA AND CXR WHEN 1ST UNSET UNSURE OF RESULTS. CON'T TO HAVE PAIN. AREA RED. Source: patient Exam Limitations: no limitations (DED I) History of Present Illness Date Seen by Provider: Jan 27, 2018 Time Seen by Provider: 10:49 Initial Comments To ER with c/o central chest redness. On bactrim and mupirocin since 01/24/19. States she saw Dr blanton this morning who advised her to come to ER as this might need drained. She specifically denies fevers or chills but states the pain is intolerable and redness is getting bigger. Timing/Duration: just prior to arrival, getting worse Allergies and Home Medications Allergies Coded Allergies: No Known Drug Allergies (Unverified , 01/27/18) Home Medications Hydrocodone/Acetaminophen 1 Each Tablet, 1 EACH PO Q4H PRN for PAIN-MILD TO MODERATE Prescribed by: BYRON MATA on 01/27/18 1126 Patient Home Medication List Home Medication List Reviewed: Yes Constitutional: see HPI EENTM: see HPI Respiratory: no symptoms reported Cardiovascular: no symptoms reported Genitourinary: no symptoms reported Musculoskeletal: no symptoms reported Skin: see HPI Psychiatric/Neurological: No Symptoms Reported Endocrine: No Symptoms Reported Past Kjnhmza-Bxtbrc-Ghugli Hx Patient Social History Alcohol Use: Denies Use Recreational Drug Use: No Smoking Status: Current Everyday Smoker 2nd Hand Smoke Exposure: Yes Recent Foreign Travel: No Contact w/Someone Who Travel: No Recent Infectious Disease Expo: No Past Medical History Surgeries: Yes Section, Gallbladder, Orthopedic Respiratory: No Cardiac: No Neurological: No Genitourinary: No Gastrointestinal: No Musculoskeletal: No Endocrine: No HEENT: No Cancer: No Psychosocial: Yes Anxiety Physical Exam Vital Signs Vital Signs - First Documented 01/27/18 10:13 Temp 99.0 Pulse 81 Resp 18 B/P (MAP) 131/67 (88) Pulse Ox 98 Capillary Refill : Less Than 3 Seconds General Appearance: WD/WN, no apparent distress, obese HEENT: PERRL/EOMI, normal ENT inspection Neck: non-tender, full range of motion Respiratory: no respiratory distress, no accessory muscle use Gastrointestinal: non tender, soft Extremities: normal range of motion, non-tender Neurologic/Psychiatric: alert, normal mood/affect Skin: normal color, warm/dry Skin Problem Location: other (to Central chest there is erythema about quarter to half-dollar size with induration but without fluctuance. I do not believe I& D would be helpful at this time. Will order ultrasound to confirm. ) Skin Problem Character: erythema, other (there is no drainage. quarter to half dollar sized are of erythema. ) Procedures/Interventions I&D : Blade Size: 11 I & D Procedure: betadine prep Packing/Drain: Idoform 10/23 Progress Anesthetized with 2 mL of 2% lidocaine without epinephrine. 1 cm incision made with an 11 blade scalpel. A small amount of purulent material expressed. Cavity loculations broken up with curved hemostats. Irrigated with Betadine solution then packed with quarter-inch iodoform gauze. Progress/Results/Core Measures My Orders Orders - BYRON MATA APRN Soft Tissue Unlisted 69424 (01/27/18 10:57) Hydrocodone/Apap 5/325 Tablet (Lortab 5 (01/27/18 11:00) Lidocaine 2% Injection 20 Ml (Xylocaine (01/27/18 11:15) Wound Culture (01/27/18 11:27) Medications Given in ED Current Medications Medications Dose Ordered Sig/Veronika Route Start Time Stop Time Status Last Admin Dose Admin Acetaminophen/ Hydrocodone Bitart 1 tab ONCE ONCE PO 01/27/18 11:00 01/27/18 11:01 DC 01/27/18 11:14 1 TAB Lidocaine HCl 2 ml ONCE ONCE INJ 01/27/18 11:15 01/27/18 11:16 DC 01/27/18 11:16 2 ML Vital Signs/I&O 01/27/18 01/27/18 10:13 11:14 Temp 99.0 99.0 Pulse 81 Resp 18 B/P (MAP) 131/67 (88) Pulse Ox 98 Blood Pressure Mean: 88 Progress Note : Progress Note 1124- ultrasound did confirm a fluid collection. Departure Impression Primary Impression: Abscess Disposition: HOME, SELF-CARE Condition: Stable Departure-Patient Inst. Decision time for Depature: 10:51 Referrals: RIANNA BLANTON DO (PCP/Family) Primary Care Physician Patient Instructions: Abscess Incision and Drainage (DC) Add. Discharge Instructions: 1. Return to ER for any concerns 2. warm compresses to the area. Continue current antibiotics 3. Return to the emergency room either tomorrow night or Th morning for recheck and packing removal. You may shower. If The packing falls out on its own prematurely before then simply leave it out but you should still return to the emergency room either tomorrow night or Th morning for wound recheck. All discharge instructions reviewed with patient and/or family. Voiced understanding. Scripts Hydrocodone/Acetaminophen (Bois D Arc 5-325 Tablet) 1 Each Tablet 1 EACH PO Q4H Y for PAIN-MILD TO MODERATE, #14 TAB Prov: BYRON MATA APRN 01/27/18 Copy Copies To 1: RIANNA BLANTON PETER J APRN Jan 27, 2018 10:53
[2018-01-27] MEDS ORDERED: HYDROcodone/APAP 5 MG/325 MG (LORTAB) TAB PO ONE (11:00)
[2018-01-27] MEDS ORDERED: LIDOCAINE 2% 20 ML (XYLOCAINE) VIAL INJ ONE (11:15)
[2018-01-27] MEDS ORDERED: HYDR-757 PO (11:26)
[2018-01-27 11:47] VITALS: BP 127/67
--- NOTE | 2018-01-27 13:00 | Diagnostic Imaging Report ---
INDICATION: Erythema and pain in chest. FINDINGS: Ultrasound of the area in question in the right upper chest is noted. A hypoechoic complicated cystic lesion in the subcutaneous fat is noted measuring about 1.0 cm. The appearance is nonspecific. IMPRESSION: Hypoechoic complicated cystic lesion in the subcutaneous fat in the area in question in the right upper chest. This may represent a small abscess or hematoma. Correlate with the clinical findings. Dictated by: Dictated on workstation # [id number]
[2018-01-28] MEDS ORDERED: OXYC-197 PO (15:55)
[2018-01-28] MEDS ORDERED: CLIN300C11 PO (15:55)
== END 2018-01-27 11:46 | disposition home or self-care (01) ==
LOC: ER 10:08
DX: L02.213 Cutaneous abscess of chest wall (principal); F41.9 Anxiety disorder, unspecified; F17.200 Nicotine dependence, unspecified, uncomplicated; Z87.59 Personal history of other complications of pregnancy, childbirth and the puerperium
CPT/HCPCS: 10061; 76999; 87070; 87205

== ENCOUNTER 2018-01-28 15:41 | Emergency (ER) | payer MEDICAID ==
[~2018-01-28] VITALS: Ht 165.1 cm; Wt 136.1 kg
[~2018-01-28 15:41] MED LIST: AMBIE; HYDR-757 PO; IBUP-1780; SULF-222; ZOLP10TA5
[2018-01-28] MEDS ORDERED: OXYC-197 PO (15:55)
[2018-01-28] MEDS ORDERED: CLIN300C11 PO (15:55)
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
[2018-01-28 15:58] VITALS: BP 128/64
--- OUTSIDE RECORDS SUMMARY | 2018-01-29 11:10 | XMS REPORT | Continuity of Care Document ---
Author Author [facility] Address Unknown Phone Unavailable Allergies Active Description Code Type Severity Reaction Onset Reported/Identified Relationship to Patient Clinical Status Yes No Known Drug Allergies [id number] Drug Allergy Unknown N/A 01/27/2018 Medications There is no data. Problems Date Dx Coded Attending Type Code Diagnosis Diagnosed By 12/23/2013 EUGENIO BRUMFIELD APRN 466.0 BRONCHITIS, ACUTE 12/23/2013 EUGENIO BRUMFIELD APRN L 466.0 BRONCHITIS, ACUTE 12/23/2013 HENNING DO, ROGER K 466.0 BRONCHITIS, ACUTE 12/23/2013 HENNING DO ROGER K 466.0 BRONCHITIS, ACUTE 12/23/2013 HENNING DO ROGER K 466.0 BRONCHITIS, ACUTE 12/23/2013 HENNING [...] DO, ROGER K 461.9 SINUSITIS ACUTE 07/09/2014 JUVENCIO ENAMORADO, ROGER K 461.9 SINUSITIS ACUTE 10/31/2014 JUVENCIO ENAMORADO, ROGER K 493.12 INTRINSIC ASTHMA WITH (ACUTE) EXACERBATION 10/31/2014 HENNING DO, ROGER K 786.2 COUGH 10/31/2014 HENNING DO, ROGER K 493.12 INTRINSIC ASTHMA WITH (ACUTE) EXACERBATION 10/31/2014 HENNING DO, ROGER K 786.2 COUGH 10/31/2014 JUVENCIO ENAMORADO, ROGER K 493.12 INTRINSIC ASTHMA WITH (ACUTE) EXACERBATION 10/31/2014 JUVENCIO DO, ROGER K 786.2 COUGH 11/22/2014 JUVENCIO DO, ROGER K 110.1 ONYCHOMYCOSIS 11/22/2014 JUVENCIO ENAMORADO, ROGER K 278.01 OBESITY, MORBID (BMI >40) 11/22/2014 JUVENCIO DO, ROGER K 455.3 EXTERNAL HEMORRHOIDS WITHOUT COMPLICATION 11/22/2014 JUVENCIO ENAMORADO, ROGER K 493.90 ASTHMA UNSPECIFIED 11/22/2014 JUVENCIO ENAMORADO ROGER K 110.1 ONYCHOMYCOSIS 11/22/2014 JUVENCIO ENAMORADO, ROGER K 278.01 OBESITY, MORBID (BMI >40) 11/22/2014 JUVENCIO ENAMORADO, ROGER K 455.3 EXTERNAL HEMORRHOIDS WITHOUT COMPLICATION 11/22/2014 JUVENCIO ENAMORADO, ROGER K 493.90 ASTHMA UNSPECIFIED 01/04/2015 JUVENCIO ENAMORADO, ROGER K 079.99 UNSPECIFIED VIRAL INFECTION 01/04/2015 JUVENCIO ENAMORADO, ROGER K 786.50 UNSPECIFIED CHEST PAIN 01/29/2018 BYRON MATA APRN Ot 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 DEPENDENCE, UNSPECIFIED, UNCOMP 01/29/2018 BYRON MATA APRN Ot F41.9 ANXIETY DISORDER, UNSPECIFIED 01/29/2018 BYRON MATA APRN Ot L02.213 CUTANEOUS ABSCESS OF CHEST WALL 01/29/2018 BYRON MATA APRN Ot L53.9 ERYTHEMATOUS CONDITION, UNSPECIFIED 01/29/2018 BYRON MATA APRN Ot Z87.59 PERSONAL HISTORY OF COMP OF PREG, CHLDBR Procedures Code Description [place] [address] NEBULIZER TREATMENT 12/23/2013 J7613 ALBUTEROL UNIT DOSE FORM INHALED 12/23/2013 38303 THERAPUTIC INJ SQ/IM 12/23/2013 J2930 SOLUMEDROL INJ 12/23/2013 13797 XRAY CHEST 2 VIEW 12/23/2013 67996 OXIMETRY 12/23/2013 70900 ROUTINE VENIPUNCTURE 03/30/2014 87137 CMP 03/30/2014 66835 LIPID PANEL 03/30/2014 24170 A1C (RML) 03/30/2014 02140 TSH 03/30/2014 44614 CULTURE URINE 05/18/2014 50952 UA LONG DIP 05/18/2014 04337 THERAPUTIC INJ SQ/IM 10/31/2014 J2930 SOLUMEDROL INJ 10/31/2014 Results Test Result Range Gram stain microscopy - 01/27/18 11:15 GRAM STAIN RESULT MODERATE # WBC'S, NO BACTERIA OBSERVED NRG Bacteria identification in wound by culture - 01/27/18 11:15 Bacteria identification in wound by culture NG NRG Encounters ACCT No. Visit Date/Time Discharge Status Pt. Type Provider Facility Loc./Unit Complaint [id number] 01/04/2015 10:26:00 01/04/2015 23:59:59 CLS Outpatient ROGER HENNING DO [id number] 11/22/2014 09:46:00 11/22/2014 23:59:59 CLS Outpatient ROGER HENNING DO [id number] 10/31/2014 14:31:00 10/31/2014 23:59:59 CLS Outpatient ROGER HENNING DO [id number] 07/09/2014 10:18:00 07/09/2014 23:59:59 CLS Outpatient ROGER HENNING DO [id number] 05/18/2014 13:39:00 05/18/2014 23:59:59 CLS Outpatient ROGER HENNING DO [id number] 03/30/2014 07:26:00 03/30/2014 23:59:59 CLS Outpatient EUGENIO BRUMFIELD APRN [id number] 12/23/2013 11:45:00 12/23/2013 23:59:59 CLS Outpatient EUGENIO BRUMFIELD APRN [id number] 01/27/2018 09:20:00 [facility] [id number] 01/28/2018 15:42:00 01/28/2018 15:59:00 DIS Emergency BYRON MATA APRN [facility] ER WOUND CHECK [id number] 01/27/2018 10:08:00 01/27/2018 11:46:00 DIS Outpatient BYRON MATA APRN [facility] ER SKIN WOUND ISSUE ON CHEST
== END 2018-01-28 15:59 | disposition home or self-care (01) ==
LOC: EDUNIT# 15:41 → ER 15:42
DX: N61.1 Abscess of the breast and nipple (principal); R51 Headache

== ENCOUNTER 2018-04-28 22:26 | Emergency (ER) | payer MEDICAID ==
[~2018-04-28] VITALS: Ht 165.1 cm; Wt 136.1 kg
[~2018-04-28 22:26] MED LIST changes: +CLIN300C11 PO; +OXYC-197 PO
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
[2018-04-28] MEDS ORDERED: IBUPROFEN 800 MG (MOTRIN) TAB PO STA (23:30)
[2018-04-28] MEDS ORDERED: HYDROcodone/APAP 5 MG/325 MG (LORTAB) TAB PO STA (23:30)
--- OUTSIDE RECORDS SUMMARY | 2018-04-28 23:34 | XMS REPORT ---
Author Author EUGENIO BRUMFIELD [facility] Address [address] [place] [address] Care Team Providers Care Senior Risk Manager Name Role Phone EUGENIO BRUMFIELD Unavailable PROBLEMS Type Condition ICD9-CM Code OFW10-KV Code Onset Dates Condition Status SNOMED Code Problem Asthma exacerbation J45.901 Active 114882217 Problem Allergic rhinitis, unspecified allergic rhinitis type J30.9 Active 63252097 Problem Morbid (severe) obesity due to excess calories E66.01 Active 203814884 Problem Tobacco abuse Z72.0 Active 012571094 Problem Scabies B86 Active 754630418 Problem Seasonal allergic rhinitis, unspecified allergic rhinitis trigger J30.2 Active 327296351 Problem Body mass index (BMI) of 50-59.9 in adult Z68.43 Active 734207866 Problem Allergic contact dermatitis, unspecified trigger L23.9 Active 167523827 ALLERGIES No Information ENCOUNTERS Encounter Location Date Diagnosis [id number] [place] [id number] Jan, Abscess L02.[address] [place] [address] [id number] Jan, Abscess L02.[address] [place] [address] [id number] 15 Nov, 2017 Shortness of breath R06.02 ; Swelling, mass, or lump in chest R22.2 ; Asthma exacerbation J45.901 ; Tobacco abuse Z72.0 ; Body mass index (BMI) of 50- 59.9 in adult Z68.43 and Morbid (severe) obesity due to excess calories E66.01 [facility] [address] [id number] [place] [id number] Jul, [facility] [address] [id number] [place] [id number] Mar, Dental caries K02.9 [facility] [address] [facility] [id number] [place] [id number] Mar, [facility] Z01.20 [facility] [address] [facility] [id number] [place] [id number] February, Dental examination Z01.20 [facility] [address] [id number] [place] [id number] Jan, [facility] [address] [facility] [id number] [place] [id number] Dec, Right foot pain M79.671 and Right foot sprain, initial encounter S93.601A [facility] [address] [id number] [place] [id number] Nov, [facility] [address] [id number] [place]END[place] [id number] Nov, [facility] [address] [id number] [place] [id number] Nov, [facility] [address] [id number] [place] [id number] Nov, [facility] [address] [id number] [place] [id number] Nov, Asthma exacerbation J45.901 [facility] [address] [id number] [place] [id number] Nov, [facility] [address] [id number] [place] [id number] Nov, Asthma exacerbation J45.901 and Allergic contact dermatitis, unspecified trigger L23.9 [facility] [address] [facility] [id number] [place] [address] Aug, Dental examination Z01.20 [facility] [address] [facility] [id number] [place] [address] Aug, Dental examination Z01.20 [facility] [address] [id number] [place] [id number] Jul, Scabies B86 [address] [id number] [place] [id number] 14 Jun, 2016 [facility] [address] [id number] [place] [address] Jun, [address] [id number] [place] [id number] Jun, Asthma exacerbation J45.901 and Seasonal allergic rhinitis, unspecified allergic rhinitis trigger J30.[address] [id number] [place] [id number] Dec, [facility] [address] [id number] [place] [id number] Dec, Strep pharyngitis J02.0 [address]100[place] [id number] Nov, Encntr for medicaid biller exam (general) (routine) w/o abn findings Z01.419 [facility] [address] [id number] [place] [id number] Oct, Sinusitis J32.9 and Allergic rhinitis, unspecified allergic rhinitis type J30.[address] [id number] [place] [id number] Aug, Allergic rhinitis, unspecified allergic rhinitis type J30.[address] [id number] [place] [id number] Mar, Avulsion fracture of navicular bone of left foot 825.22 and Fall from other slipping, tripping, or stumbling E885.9 [facility] [address] [id number] [place] [address] 14 Jan, 2015 [facility] [address] [id number] [place] [address] Jan, [facility] [place] [facility] [address] [id number] [place] [address] Dec, 2014 [facility] [place] [facility] [address] [id number] [place] Dec, [facility] [place] [facility] [address] [id number] [place] [address] Dec, 2014 [facility] [place] [facility] [address] [id number] [place] [address] Dec, 2014 [facility] [place] [facility] [address] [id number] [place] [address] Dec, 2014 [facility] [place] [facility] [address] [id number] [place] [address] Dec, 2014 [facility] [place] [facility] [address] [facility] [id number] [place] [address] Nov, [facility] [place] [facility] [address] [id number] [place] [address] Nov, [facility] [place] [facility] [address] [facility] [id number] [place] [address] Nov, [facility] [place] [facility] [address] [facility] [id number] [place] [address] Nov, [facility] [place] [facility] [address] [facility] [id number] [place] [address] Nov, [facility] [place] [facility] [address] [id number] [place] [address] Nov, [facility] [place] [facility] [address] [id number] [place] [address] Oct, [facility] [place] [facility] [address] [id number] [place] Oct, [facility] [place] [facility] [address] [facility] [id number] [place] [address] Jul, [facility] [place] [facility] [address] [id number] [place] [address] Jul, [facility] [address] [facility] [id number] [place] [address] Jun, [facility] [address] [facility] [id number] [place] [address] Jun, [facility] [address] [facility] [id number] [place] [address] May, [facility] [address] [facility] [id number] [place] Apr, [facility] [address] [facility] [id number] [place] Apr, [facility] [address] [facility] [id number] [place] [address] Mar, [facility] [address] [facility] [id number] [place] [address] Mar, [facility] [address] [facility] [id number] [place] [address] Mar, [facility] [address] [facility] [id number] [place] [address] Mar, [facility] [address] [facility] [id number] [place] [address] Mar, [facility] [address] [facility] [id number] [place] [address] Mar, [facility] [address] [facility] [id number] [place] [address] February, [facility] [address] [facility] [id number] [place] [address] February, [facility] [address] [facility] [id number] [place] Dec, [facility] [address] [facility] [id number] [place] Dec, IMMUNIZATIONS No Known Immunizations SOCIAL HISTORY Never Assessed REASON FOR VISIT Refill request PLAN OF CARE VITAL SIGNS MEDICATIONS Medication Instructions Dosage Frequency Start Date End Date Duration Status Ibuprofen 800 MG Orally Three times a day with food 1 tablet as needed with food Jun, Aug, 30 days Active RESULTS No Results PROCEDURES No Known procedures INSTRUCTIONS MEDICATIONS ADMINISTERED No Known Medications MEDICAL [...]
--- OUTSIDE RECORDS SUMMARY | 2018-04-28 23:36 | XMS REPORT | Continuity of Care Document ---
Author Author [facility] Address Unknown Phone Unavailable Allergies Active Description Code Type Severity Reaction Onset Reported/Identified Relationship to Patient Clinical Status Yes No Known Drug Allergies [id number] Drug Allergy Unknown N/A 01/27/2018 Medications There [...] K 698.1 PRURITUS OF GENITAL ORGANS 05/18/2014 HENNIGN DO, ROGER K 789.00 ABDOMINAL PAIN UNSPECIFIED [...] ROGER K 461.9 SINUSITIS ACUTE 10/31/2014 HENNING DO, ROGER K 493.12 INTRINSIC ASTHMA WITH (ACUTE) EXACERBATION 10/31/2014 HENNING DO, ROGER K 786.2 COUGH 10/31/2014 HENNING DO, ROGER K 493.12 INTRINSIC ASTHMA WITH (ACUTE) EXACERBATION 10/31/2014 HENNING DO, ROGER K 786.2 COUGH 10/31/2014 HENNING DO, ROGER K 493.12 INTRINSIC ASTHMA WITH (ACUTE) EXACERBATION 10/31/2014 HENNING DO, ROGER K 786.2 COUGH 11/22/2014 HENNING DO, ROGER K 110.1 ONYCHOMYCOSIS 11/22/2014 HENNING DO, ROGER K 278.01 OBESITY, MORBID (BMI >40) 11/22/2014 HENNING DO, ROGER K 455.3 EXTERNAL HEMORRHOIDS WITHOUT COMPLICATION 11/22/2014 HENNING DO, ROGER K 493.90 ASTHMA UNSPECIFIED 11/22/2014 HENNING DO, ROGER K 110.1 ONYCHOMYCOSIS 11/22/2014 HENNING DO, ROGER K 278.01 OBESITY, MORBID (BMI >40) 11/22/2014 HENNING DO, ROGER K 455.3 EXTERNAL HEMORRHOIDS WITHOUT COMPLICATION 11/22/2014 HENNING DO, ROGER K 493.90 ASTHMA UNSPECIFIED 01/04/2015 JUVENCIO DO, ROGER K 079.99 UNSPECIFIED VIRAL INFECTION 01/04/2015 JUVENCIO DO, ROGER K 786.50 UNSPECIFIED CHEST PAIN 01/27/2018 BYRON MATA APRN Ot 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 DEPENDENCE, UNSPECIFIED, UNCOMP 01/27/2018 BYRON MATA APRN Ot F41.9 ANXIETY DISORDER, UNSPECIFIED 01/27/2018 BYRON MATA APRN Ot L02.213 CUTANEOUS ABSCESS OF CHEST WALL 01/27/2018 BYRON MATA APRN Ot L53.9 ERYTHEMATOUS CONDITION, UNSPECIFIED 01/27/2018 BYRON MATA APRN Ot Z87.59 PERSONAL HISTORY OF COMP OF PREG, CHLDBR 01/29/2018 BYRON MATA APRN Ot 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 DEPENDENCE, UNSPECIFIED, UNCOMP 01/29/2018 BYRON MATA APRN Ot F41.9 ANXIETY DISORDER, UNSPECIFIED 01/29/2018 MATA, PETER J CONSTRUCTION JOB COST ESTIMATOR Ot L02.213 CUTANEOUS ABSCESS OF CHEST WALL 01/29/2018 BYRON MATA CONSTRUCTION JOB COST ESTIMATOR Ot L53.9 ERYTHEMATOUS CONDITION, UNSPECIFIED 01/29/2018 BYRON MATA CONSTRUCTION JOB COST ESTIMATOR Ot Z87.59 PERSONAL HISTORY OF COMP OF PREG, CHLDBR 01/30/2018 BYRON MATA APRN Ot N61.1 ABSCESS OF THE BREAST AND NIPPLE 01/30/2018 BYRON MATA APRN Ot R51 HEADACHE Procedures Code Description [place] [address] NEBULIZER TREATMENT 12/23/2013 J7613 ALBUTEROL UNIT DOSE FORM INHALED 12/23/2013 53231 THERAPUTIC INJ SQ/IM 12/23/2013 J2930 SOLUMEDROL INJ 12/23/2013 45321 XRAY CHEST 2 VIEW 12/23/2013 25288 OXIMETRY 12/23/2013 32512 ROUTINE VENIPUNCTURE 03/30/2014 51623 CMP 03/30/2014 63226 LIPID PANEL 03/30/2014 93769 A1C (RML) 03/30/2014 56796 TSH 03/30/2014 01345 CULTURE URINE 05/18/2014 54746 UA LONG DIP 05/18/2014 80782 THERAPUTIC INJ SQ/IM 10/31/2014 J2930 SOLUMEDROL INJ 10/31/2014 Results Test Result Range Gram stain microscopy - 01/27/18 11:15 GRAM STAIN RESULT MODERATE # WBC'S, NO BACTERIA OBSERVED NRG Bacteria identification in wound by culture - 01/27/18 11:15 Bacteria identification in wound by culture [id number] NRG QUANTITY OF GROWTH Scant Growth NRG Encounters ACCT No. Visit Date/Time Discharge Status Pt. Type Provider Facility Loc./Unit Complaint [id number] 01/04/2015 10:26:00 01/04/2015 23:59:59 CLS Outpatient ROGER HENNING DO [id number] 11/22/2014 09:46:00 11/22/2014 23:59:59 CLS Outpatient ROGER HENNING DO [id number] 10/31/2014 14:31:00 10/31/2014 23:59:59 CLS Outpatient ROGER HENNING DO [id number] 07/09/2014 10:18:00 07/09/2014 23:59:59 CLS Outpatient ROGER HENNING DO [id number] 05/18/2014 13:39:00 05/18/2014 23:59:59 CLS Outpatient ROGER HENNING DO [id number] 03/30/2014 07:26:00 03/30/2014 23:59:59 CLS Outpatient EUGENIO BRUMFIELD APRN [id number] 12/23/2013 11:45:00 12/23/2013 23:59:59 CLS Outpatient EUGENIO BRUMFIELD APRN [id number] 04/06/2018 15:00:00 04/06/2018 23:59:59 CLS Outpatient EUGENIO BRUMFIELD APRN [facility] [id number] 01/28/2018 15:42:00 01/28/2018 15:59:00 DIS Outpatient BYRON MATA APRN [facility] ER WOUND CHECK [id number] 01/27/2018 10:08:00 01/27/2018 11:46:00 DIS Emergency BYRON MATA APRN [facility] ER SKIN WOUND ISSUE ON CHEST
[2018-04-28 23:41] VITALS: BP 140/91
--- NOTE | 2018-04-29 06:31 | Diagnostic Imaging Report ---
INDICATION: Bruising right leg and ankle. Fall. FINDINGS: Right ankle 3 views. There are no fractures or dislocations. Articulating surfaces are smooth. There is generalized swelling of the soft tissues. IMPRESSION: No bony abnormalities demonstrated. Generalized soft tissue swelling noted. Dictated by: Dictated on workstation # [id number]
--- NOTE | 2018-04-29 07:26 | Diagnostic Imaging Report ---
Indication: Fall, right leg pain. Findings: Right tibia and fibula show no fractures. The knee and ankle show good alignment. There is generalized soft tissue swelling noted. Impression: No bony abnormalities demonstrated right lower extremity. Dictated by: Dictated on workstation # [id number]
== END 2018-04-28 23:41 | disposition home or self-care (01) ==
LOC: EDUNIT# 22:26 → ER 22:27
DX: S93.401A Sprain of unspecified ligament of right ankle, initial encounter (principal); S80.11XA Contusion of right lower leg, initial encounter; F17.210 Nicotine dependence, cigarettes, uncomplicated; F41.9 Anxiety disorder, unspecified; Z88.6 Allergy status to analgesic agent; Z87.59 Personal history of other complications of pregnancy, childbirth and the puerperium; W10.9XXA Fall (on) (from) unspecified stairs and steps, initial encounter
CPT/HCPCS: 73590; 73610